=== PATIENT | female | born 1990 | race Caucasian/White ===

== ENCOUNTER 2019-09-26 14:25 | Outpatient (RCR) | payer OTHER, SELFPAY ==
[2019-08-14 11:20] VITALS: BP 126/69; PULSE 93
--- NOTE | 2019-08-14 11:35 | PM.OBTRLD ---
OB - Triage/Final Diagnosis Visit Information Date of evaluation: 08/14/19 Reason for evaluation: threatened labor Evaluation Vital signs: Vital Signs - 24 hr 08/14/19 11:20 Pulse Rate 93 Blood Pressure [Left Arm] 126/69
[2019-08-21 10:55] VITALS: BP 128/75; PULSE 81
[2019-08-28 13:36] VITALS: BP 113/65; PULSE 84
[2019-08-29 22:42] VITALS: BP 143/78; PULSE 79
[2019-09-05 14:58] VITALS: BP 140/77; PULSE 98
[2019-09-12 13:50] VITALS: BP 116/68; PULSE 88
[2019-09-19 15:06] VITALS: BP 132/84; PULSE 83
[2019-09-26 14:56] VITALS: BP 120/87; PULSE 92
== END 2019-10-01 12:16 | disposition home or self-care (01) ==
LOC: ANHOBOP 14:25
PROVIDERS: Visit Provider Obstetrics & Gynecology
DX: O99.89 Other specified diseases and conditions complicating pregnancy, childbirth and the puerperium (principal); R03.0 Elevated blood-pressure reading, without diagnosis of hypertension; Z3A.32 32 weeks gestation of pregnancy
CPT/HCPCS: 59025

== ENCOUNTER 2019-09-27 05:55 | Inpatient (IN) | payer OTHER, SELFPAY ==
[2019-09-27] VITALS (73 sets, daily range): BP systolic 122–159; BP diastolic 62–93; PULSE 75–146; RESP 17–18; TEMP 36.4–37.1; O2SAT 98–100; BMI 43.1
[2019-09-27 06:38] LABS: Basophils Percent Auto 0.2 % (0.2-1.2); Eosinophils Absolute Auto 0.1 K/mm3 (0-0.3); Eosinophils Percent Auto 0.4 % (0-4.4); Hemoglobin 12.4 g/dL (12.0-15.0); Immature Granulocyte Absolute 0.19 K/mm3 (0.00-0.031); Immature Granulocyte Percent A 1.5 % (0-0.5); Lymphocytes Absolute Auto 1.93 K/mm3 (0.9-3.2); Lymphocytes Percent Auto 15.7 % (18.3-44.2); Mean Corpuscular HGB Conc 32.6 g/dl (32-36); Mean Corpuscular Hemoglobin 27.6 pg (26-34); Mean Corpuscular Volume 84.4 fl (80-100); Mean Platelet Volume 10.5 fl (7.4-10.4); Monocytes Absolute Auto 0.7 K/mm3 (0.1-0.6); Monocytes Percent Auto 5.3 % (2.6-8.5); Neutrophils Absolute Auto 9.4 K/mm3 (1.3-6.7); Neutrophils Percent Auto 76.9 % (45.5-73.1); Platelet Count Result 303 k/mm3 (150-375); Red Cell Distribution Width 15.2 % (11.5-14.5); White Blood Count 12.3 K/mm3 (4.5-10.0)
--- NOTE | 2019-09-27 06:47 | PM.IMHP ---
H&P: HPI History of Present Illness Chief complaint: IOL Narrative: Lizzeth Moreno is a 29 year old female 001 whose last menstrual period was 01/02/2019, whose EDC is 10/09/2019, presents at38+ weeks gestation for induction of labor. She has chronic hypertension and has been on nifedipine XL 60 which is increased up to 90. Her blood pressures continue to worsen. She has an early ultrasound confirming dates and thus is admitted at 38 weeks for induction of labor. Risks and benefits reviewed Review of Systems Review of Systems: All systems reviewed & are unremarkable except as noted in HPI and below PMFSH Family History Family History Father Kidney disease Heart disease Diabetes mellitus Social History Social History Substance use: never Gender identity (if verbalized by the patient): Female Spiritual care concerns: No Meds Home Medications and Allergies Home Medications Medication Instructions Recorded Confirmed Type PNV cmb#95-ferrous fumarate-FA 1 tablet PO DAILY 08/28/19 08/28/19 History [] calcium carbonate [Tums] 200 mg PO QID PRN 08/28/19 08/28/19 History nifedipine 90 mg PO DAILY 08/28/19 08/28/19 History Allergies Allergy/AdvReac Type Severity Reaction Status Date / Time No Known Allergies Allergy Verified 08/28/19 13:30 Vital Signs Vital Signs - 24 hr 09/27/19 06:11 09/27/19 06:15 09/27/19 06:30 Pulse Rate 104 H 107 H 105 H Blood Pressure 145/86 H 134/83 142/81 H 09/27/19 06:45 Pulse Rate 107 H Blood Pressure 142/87 H Exam Const: General: no acute distress Eyes: General: appearance normal, both eyes and all related structures Neck: Neck: supple and no JVD Thyroid: thyroid normal Resp: Effort & Inspection: normal respiratory effort Auscultation: clear to auscultation bilaterally Cardio: Rate: regular rate Rhythm: regular rhythm GI: Inspection: normal to inspection (Uterus is gravid consistent with ) Auscultation: normal bowel sounds : General: Yes other (Cervix is 3, 60, -1 station. Artificial rupture of membranes clear. ) Bimanual exam- vagina & uterus: other ( heart tones are reassuring) Skin: General skin exam: no rashes or lesions noted Extrem: General: normal to inspection and no edema Psych: Mental Status: mental status grossly normal Affect: normal affect H&P: Results Labs Labs: Short CBC 09/27/19 Range/Units 06:28 WBC 12.3 H (4.5-10.0) K/mm3 Hgb 12.4 (12.0-15.0) g/dL Hct 38.0 (37.0-47.0) % Plt Count 303 (150-375) k/mm3 Assessment and Plan Additional Plan Impression: Term with worsening hypertension Plan: Medical induction of labor. Spontaneous vaginal delivery is expected. She has an epidural candidate. PIH labs were drawn.
[2019-09-27] MEDS: LACTATED RINGERS 1,000 ML 125 ML IV CONT ×2 (06:52→09:39)
--- NOTE | 2019-09-27 07:04 | LDADM ---
This patient, Lizzeth Moreno, was admitted to Labor/Delivery/Recovery 105 on 09/27/19 at 05:55. Plans for labor, pain management and were discussed with patient. Patient/family oriented to hospital policies and general routines including ID bracelet, bed and alarms, visiting hours, pain management, procedures, bathroom and other care routines, personal items, smoking policy, room service/diet and guest tray routines, security routines, and visiting hours. Patient/Family are encouraged to report perceived risks to care and to ask questions if they do not understand what they are told or what they should do. See OBIX for further documentation.
[2019-09-27 07:07] LABS: Uric Acid 4.5 mg/dL (2.5-7.5)
[2019-09-27 07:17] LABS: Alanine Aminotransferase 11 U/L (4-35); Albumin Level 3.7 g/dL (3.5-5.1); Alkaline Phosphatase 139 U/L (38-126); Aspartate Amino Transferase 19 U/L (14-36); Bilirubin,Total 0.3 mg/dL (0.2-1.3); Blood Urea Nitrogen 7 mg/dL (7-17); Calcium 8.9 mg/dL (8.4-10.2); Carbon Dioxide 18 mmol/L (22-30); Chloride 101 mmol/L (98-107); Estimated CRCL calculation 229 ml/min; Estimated Glomerular Filt Rate > 60; Glucose 128 mg/dL (65-105); Potassium 3.5 mmol/L (3.4-5.0); Sodium 135 mmol/L (137-145)
--- NOTE | 2019-09-27 10:28 | WPDANESEPPF ---
Anes - Initial Pre Proc Eval Date/Time: 09/27/19 10:28 Surgeon: Arcadio Duarte MD Pre Op Diagnosis: IOL Patient Data Age: 29 Gender: F Height: 5 ft 7 in Weight: 125 kg Last Vital Signs Temp 36.4 C 09/27/19 08:00 Pulse 92 09/27/19 10:27 BP 134/76 09/27/19 10:27 Pulse Ox 98 09/27/19 10:24 Allergies Allergy/AdvReac Type Severity Reaction Status Date / Time No Known Allergies Allergy Verified 08/28/19 13:30 Home Medications Medication Instructions Recorded Confirmed Type PNV cmb#95-ferrous fumarate-FA 1 tablet PO DAILY 08/28/19 09/27/19 History [] calcium carbonate [Tums] 200 mg PO QID PRN 08/28/19 09/27/19 History nifedipine 90 mg PO DAILY 08/28/19 09/27/19 History Laboratory Tests 09/27/19 09/27/19 09/27/19 06:28 06:28 06:28 WBC 12.3 K/mm3 H K/mm3 (4.5-10.0) RBC 4.50 M/mm3 M/mm3 (4.2-5.4) Hgb 12.4 g/dL g/dL (12.0-15.0) Hct 38.0 % % (37.0-47.0) MCV 84.4 fl fl (80-100) MCH 27.6 pg pg (26-34) MCHC 32.6 g/dl g/dl (32-36) RDW 15.2 % H % (11.5-14.5) Plt Count 303 k/mm3 k/mm3 (150-375) MPV 10.5 fl H fl (7.4-10.4) Immature Gran % (Auto) 1.5 % H % (0-0.5) Neut % (Auto) 76.9 % H % (45.5-73.1) Lymph % (Auto) 15.7 % L % (18.3-44.2) [place] % (Auto) 5.3 % % (2.6-8.5) Eos % (Auto) 0.4 % % (0-4.4) Baso % (Auto) 0.2 % % (0.2-1.2) Lymph # (Auto) 1.93 K/mm3 K/mm3 (0.9-3.2) [place] # (Auto) 0.7 K/mm3 H K/mm3 (0.1-0.6) Eos # (Auto) 0.1 K/mm3 K/mm3 (0-0.3) Baso # (Auto) 0.0 K/mm3 K/mm3 (0.0-0.1) Abs Immat Gran (auto) 0.19 K/mm3 H K/mm3 (0.00-0.031) Absolute Neuts (auto) 9.4 K/mm3 H K/mm3 (1.3-6.7) Absolute Nucleated RBC 0.0 K/mm3 K/mm3 (0.0-0.012) Nucleated RBC % 0.0 % % (0.0-0.2) Sodium Potassium Chloride Carbon Dioxide BUN Creatinine Estim Creat Clear Calc Estimated GFR Glucose Uric Acid 4.5 mg/dL mg/dL (2.5-7.5) Calcium Total Bilirubin AST ALT Alkaline Phosphatase Total Protein Albumin RPR Pending Blood Type Antibody Screen 09/27/19 09/27/19 06:28 06:28 WBC RBC Hgb Hct MCV MCH MCHC RDW Plt Count MPV Immature Gran % (Auto) Neut % (Auto) Lymph % (Auto) [place] % (Auto) Eos % (Auto) Baso % (Auto) Lymph # (Auto) [place] # (Auto) Eos # (Auto) Baso # (Auto) Abs Immat Gran (auto) Absolute Neuts (auto) Absolute Nucleated RBC Nucleated RBC % Sodium 135 mmol/L L mmol/L (137-145) Potassium 3.5 mmol/L mmol/L (3.4-5.0) Chloride 101 mmol/L mmol/L (98-107) Carbon Dioxide 18 mmol/L L mmol/L (22-30) BUN 7 mg/dL mg/dL (7-17) Creatinine 0.40 mg/dL L mg/dL (0.7-1.0) Estim Creat Clear Calc 229 ml/min ml/min Estimated GFR > 60 (59 - ) Glucose 128 mg/dL H mg/dL (65-105) Uric Acid Calcium 8.9 mg/dL mg/dL (8.4-10.2) Total Bilirubin 0.3 mg/dL mg/dL (0.2-1.3) AST 19 U/L U/L (14-36) ALT 11 U/L U/L (4-35) Alkaline Phosphatase 139 U/L H U/L (38-126) Total Protein 8.0 g/dL g/dL (6.3-8.2) Albumin 3.7 g/dL g/dL (3.5-5.1) RPR Blood Type A Positive Antibody Screen Negative Patient hx anesthesia problems: none Family hx anesthesia problems: none PMFSH Past Medical History Medical History (Revi
--- NOTE | 2019-09-27 11:48 | P.PNOB_ITS ---
OB - PN: Subj Subjective Date/time seen: 09/27/19 11:48 Interval history: complete/pushing fhts reassuring OB - PN: Obj Data Labs CBC & Chem 7: 09/27/19 06:28 09/27/19 06:28 Labs: Laboratory Results - last 24 hr 09/27/19 09/27/19 09/27/19 06:28 06:28 06:28 WBC 12.3 H RBC 4.50 Hgb 12.4 Hct 38.0 MCV 84.4 MCH 27.6 MCHC 32.6 RDW 15.2 H Plt Count 303 MPV 10.5 H Immature Gran % (Auto) 1.5 H Neut % (Auto) 76.9 H Lymph % (Auto) 15.7 L [place] % (Auto) 5.3 Eos % (Auto) 0.4 Baso % (Auto) 0.2 Lymph # (Auto) 1.93 [place] # (Auto) 0.7 H Eos # (Auto) 0.1 Baso # (Auto) 0.0 Abs Immat Gran (auto) 0.19 H Absolute Neuts (auto) 9.4 H Absolute Nucleated RBC 0.0 Nucleated RBC % 0.0 Sodium Potassium Chloride Carbon Dioxide BUN Creatinine Estim Creat Clear Calc Estimated GFR Glucose Uric Acid 4.5 Calcium Total Bilirubin AST ALT Alkaline Phosphatase Total Protein Albumin Blood Type A Positive Antibody Screen Negative 09/27/19 06:28 WBC RBC Hgb Hct MCV MCH MCHC RDW Plt Count MPV Immature Gran % (Auto) Neut % (Auto) Lymph % (Auto) [place] % (Auto) Eos % (Auto) Baso % (Auto) Lymph # (Auto) [place] # (Auto) Eos # (Auto) Baso # (Auto) Abs Immat Gran (auto) Absolute Neuts (auto) Absolute Nucleated RBC Nucleated RBC % Sodium 135 L Potassium 3.5 Chloride 101 Carbon Dioxide 18 L BUN 7 Creatinine 0.40 L Estim Creat Clear Calc 229 Estimated GFR > 60 Glucose 128 H Uric Acid Calcium 8.9 Total Bilirubin 0.3 AST 19 ALT 11 Alkaline Phosphatase 139 H Total Protein 8.0 Albumin 3.7 Blood Type Antibody Screen OB - PN A/P Time Spent With Patient Time: Total time spent is greater than 50% in coordination of care (as documented) at patient's floor/unit and/or counseling patient:
--- NOTE | 2019-09-27 12:18 | PM.OBPRVD ---
OB - Delivery Note Procedure Intrapartal events: None Induction method: AROM Delivery augmentation: pitocin Delivery monitor: external FHT Route of delivery: Laceration description: None Specimen: No Estimated blood loss (mL): 69 Anesthesia type: Epidural Disposition: floor Baby Date of : 09/27/19 Time of : 12:09 Weeks of gestation at delivery: 38 gender: Female Weight (pounds): 8 Weight (ounces): 1 presentation: vertex position: Right Occiput Anterior Placenta delivery description: Spontaneous cord vessel description: 3 Vessels score one minute: 9 score five minutes: 9
[2019-09-27] MEDS: WITCH HAZEL 40 PADS 1 PAD TOPICAL (14:18)
[2019-09-27] MEDS: BENZOCAINE 20% AER SPR (*SP) 56 GM CAN 1 SPRAY TOPICAL (14:18)
--- NOTE | 2019-09-27 14:56 | OBPPTRN ---
Patient transferred to post room #282 via wheelchair, after vaginal delivery of viable female infant at [address] Jihan Holder. Pt is a and is choosing to breast feed . . present. Oriented to unit, room, information board, rooming in, admission packet and security measures. Patient verbalizes understanding. Pt's VSS stable and assessment WNL.
[2019-09-27] MEDS: NIFEdipine 30 MG TAB.ER.24 60 MG PO (20:18)
[2019-09-27] MEDS: DOCUSATE SODIUM 100 MG CAPSULE PO (20:18)
[2019-09-27] MEDS: ACETAMINOPHEN 325 MG TABLET 650 MG PO (20:19)
[2019-09-28 05:36] LABS: Hematocrit 34.1 % (37.0-47.0); Hemoglobin 10.8 g/dL (12.0-15.0)
--- NOTE | 2019-09-28 07:02 | PM.OBPNVD ---
OB - PN: Subj Subjective Date/time seen: 09/28/19 07:02 Interval history: complete/pushing fhts reassuring Patient comments: no complaints and pain well controlled [facility] baby status: doing well and nursing well OB - PN: Obj Data Labs CBC & Chem 7: 09/28/19 04:55 09/27/19 06:28 Labs: Laboratory Results - last 24 hr 09/27/19 09/27/19 09/27/19 06:28 06:28 06:28 Hgb Hct Sodium 135 L Potassium 3.5 Chloride 101 Carbon Dioxide 18 L BUN 7 Creatinine 0.40 L Estim Creat Clear Calc 229 Estimated GFR > 60 Glucose 128 H Uric Acid 4.5 Calcium 8.9 Total Bilirubin 0.3 AST 19 ALT 11 Alkaline Phosphatase 139 H Total Protein 8.0 Albumin 3.7 Blood Type A Positive Antibody Screen Negative 09/28/19 04:55 Hgb 10.8 L Hct 34.1 L Sodium Potassium Chloride Carbon Dioxide BUN Creatinine Estim Creat Clear Calc Estimated GFR Glucose Uric Acid Calcium Total Bilirubin AST ALT Alkaline Phosphatase Total Protein Albumin Blood Type Antibody Screen OB - PN A/P Plan day: 1 Plan: routine care Time Spent With Patient Time: Total time spent is greater than 50% in coordination of care (as documented) at patient's floor/unit and/or counseling patient: Time with patient: less than 15 minutes Review of Systems Review of Systems: All systems reviewed & are unremarkable except as noted in HPI and below Exam Const: General: no acute distress Eyes: General: appearance normal, both eyes and all related structures Neck: Neck: supple and no JVD Thyroid: thyroid normal Resp: Effort & Inspection: normal respiratory effort Auscultation: clear to auscultation bilaterally Cardio: Rate: regular rate Rhythm: regular rhythm GI: Inspection: non-distended GI Palp: Yes Soft to palpation, No Tenderness to palpation present (GI) and No Guarding due to palpation present (GI) Auscultation: normal bowel sounds : General: Yes bladder normal to palpation External Female Exam: normal external appearance Speculum Exam - Vagina: normal vaginal discharge and No vaginal bleeding Speculum Exam - Cervix: nontender Bimanual exam- vagina & uterus: bladder normal to palpation and No Cervical tenderness present OB/external & speculum: No vaginal bleeding Skin: General skin exam: no rashes or lesions noted Extrem: General: normal to inspection and no edema Psych: Mental Status: mental status grossly normal Affect: normal affect
[2019-09-28 07:50] VITALS: BP 139/86; PULSE 97; RESP 18; TEMP 36.9; O2SAT 100
--- NOTE | 2019-09-28 10:10 | PC.NURSE ---
Consult with pt., mother reports she is breast and bottle feeding. Mother wishes to supplement after each feeding until her milk is in. Mother states this is how she breastfed first child. Mother verbalizes she is able to independently latch with appropriate positioning/alignment. She denies any nipple discomfort, is feeding as required and waking infant to feed if needed. has had several feedings followed with supplementation and is currently meeting outcomes for weight, output, jaundice and feeding frequencies. Mother states she feels confident to continue current feeding plan at home. Reviewed transition to breast milk, signs of adequate intake, and engorgement/relief. Instructed to call ICP if intake/output less than required. Reviewed regular medications mother is taking. Information provided per Jess. Reviewed community resources on the [facility] website and in the Mom/Baby guide. Information on outpatient services provided. Mother has no further questions at this time.
[2019-09-28] MEDS: MULTIVIT/MIN/PREN/FOL AC/IRON TABLET 1 TAB PO (10:15)
--- NOTE | 2019-09-28 10:44 | PC.NURSE ---
Patient was given the opportunity to view the discharge video Mother & Baby Care, The First Two Weeks and to ask questions. Patient declined viewing the video and has been given the mother/baby guide for home reference.
[2019-09-28 10:48] LABS: Rapid Plasma Reagin Non-Reactive (NonReactive)
[2019-09-29 09:32] VITALS: BP 130/74; PULSE 98; RESP 20; TEMP 36.6
--- NOTE | 2019-10-01 09:39 | PM.DS ---
DS: Diagnosis Admitting Diagnosis Admitting Diagnosis: term/htn DS: Summary Time Spent with Patient Time attestation: Total time spent providing and/or coordinating discharge services: Exam Const: General: no acute distress Eyes: General: appearance normal, both eyes and all related structures Neck: Neck: supple and no JVD Thyroid: thyroid normal Resp: Effort & Inspection: normal respiratory effort Auscultation: clear to auscultation bilaterally Cardio: Rate: regular rate Rhythm: regular rhythm GI: Inspection: non-distended GI Palp: Yes Soft to palpation, No Tenderness to palpation present (GI) and No Guarding due to palpation present (GI) Auscultation: normal bowel sounds : General: Yes bladder normal to palpation External Female Exam: normal external appearance Speculum Exam - Vagina: normal vaginal discharge and No vaginal bleeding Speculum Exam - Cervix: nontender Bimanual exam- vagina & uterus: bladder normal to palpation and No Cervical tenderness present OB/external & speculum: No vaginal bleeding Skin: General skin exam: no rashes or lesions noted Extrem: General: normal to inspection and no edema Psych: Mental Status: mental status grossly normal Affect: normal affect Discharge Plan Discharge Attending physician on discharge: Arcadio Duarte Discharging Clinician: Arcadio Duarte Patient Disposition: Home, Self-Care Activity: may shower, no straining, may drive after 2 weeks and pelvic rest Diet: regular Wound Care Instructions: follow printed instructions Discharge Instructions: Education: Mom and Baby Guide Given to: Mother Follow-Up: Call your delivering provider's office for an appointment to be seen in: 6 Weeks Mom and baby should come to the [facility] for the follow-up appointment. Appointment Date/Time: Sunday, September 29, 2019 at 9:00 am What to expect at your follow-up visit: Blood Pressure Check Physical Assessment Call [phone] if you are unable to keep your appointment time. BREAST CARE: 1. Wear a snug supportive bra. 2. For engorgement discomfort: Breast Feeding: A. Apply warm moist washcloths B. Express milk as needed to relieve engorgement C. Wear loose clothing Bottle Feeding: A. May apply ice packs 3. For sore nipples: A. Identify correct latch-on B. Apply warm moist washcloths before and after nursing C. Air dry nipples after nursing D. May apply Lansinoh cream to nipples EPISIOTOMY/PERINEAL CARE: 1. Until bleeding stops, use your jhonny bottle after urinating 2. Change your pad frequently throughout the day 3. You may take sitz baths several times a day (fill your bathtub with warm water and soak for 20 minutes.) Do NOT bathe in the water 4. No tub baths until seen by your physician - You may shower ACTIVITY: 1. Rest as much as possible. 2. Do not exercise or lift anything heavier than your baby (such as laundry or other children.) 3. Avoid stairs or driving as much as possible. 4. Do not put anything into the vagina. No douching, tampons, or sexual activity until seen by physician. NOTIFY PHYSICIAN IF YOU HAVE ANY QUESTIONS OR IF ANY OF THE FOLLOWING SYMPTOMS OCCUR: 1. If your perineum becomes red, swollen, or more painful than what you have experienced in the hospital. 2. If your vaginal bleeding becomes foul smelling. 3. If your vaginal bleeding becomes more heavy than a period or if your bleeding changes from pink to bright red. However, you may pass an occasional walnut-sized clot once or twice for the first week . 4. If you experience a sharp, shooting pain in you calves. 5. If you discover a hard, reddened area on your breast or if you experience flu-like symptoms. DIET: 1. Eat regular, well-balanced meals. 2. Drink plenty of fluids daily. If , drink to thirst. Stand Alone
== END 2019-09-28 13:44 | disposition home or self-care (01) | DRG 807 ==
LOC: ANHLDR 05:58 → ANHOB2 14:35
PROVIDERS: Admitting Provider Obstetrics & Gynecology; PCP Physician Assistant; Visit Provider Obstetrics & Gynecology
DX: O10.92 Unspecified pre-existing hypertension complicating childbirth (principal); Z37.0 Single live birth; Z3A.38 38 weeks gestation of pregnancy; O99.214 Obesity complicating childbirth; E66.01 Morbid (severe) obesity due to excess calories
CPT/HCPCS: 36415; 80053; 84550; 85014; 85018; 85025; 86592; 86850; 86900; 86901; A9270; J2590; J2795; J7120

== ENCOUNTER 2024-01-01 14:49 | Emergency (ER) | payer OTHER, SELFPAY ==
--- NOTE | ~2024-01-01 | XR_ITS ---
EXAMINATION: XR ankle LT 2V DATE: 01/01/2024 15:54 INDICATION: Left ankle fracture reduction TECHNIQUE: Anteroposterior and lateral views of the left ankle were obtained. COMPARISON: 01/01/2024 3:07 PM FINDINGS: There is been significant improvement of alignment post reduction of the previously described left an kle fracture. Note the posterior malleolar fracture of the distal left tibia appears to extend to inv olve at least a portion of the medial malleolus and is now minimally displaced. The angulation of the mildly comminuted fractures of the distal metaphyseal region of the fibula has been reduced. There i s residual 4 mm medial and 7 mm posterior displacement of the main distal fragment. The talus now dwight ropriately underlies the tibial plafond and. There is prominent soft tissue swelling about the ankle. Fiberglas splinting material is positioned posterior to the foot, ankle and visualized lower leg. IMPRESSION: 1. Significant improvement in alignment of the previous noted displaced and angulated distal left tib ia and fibular fractures. Reviewed, dictated and finalized at location A. IMPRESSION: 1. Significant improvement in alignment of the previous noted displaced and ang ulated distal left tibia and fibular fractures.
--- NOTE | ~2024-01-01 | XR_ITS ---
EXAMINATION: XR ankle LT 2V DATE: 01/01/2024 15:11 INDICATION: Left ankle trauma post fall while rollerskating TECHNIQUE: Anteroposterior and lateral views of the left ankle were obtained. COMPARISON: None. FINDINGS: Proximal to the lateral malleolus is a mildly comminuted oblique fracture of the distal metaphyseal r egion of the left tibia which exits the medial cortex at the level of the tibiotalar joint line. Ther e is a second oblique intra-articular fracture of the distal left tibia which appears to separate the posterior malleolus and posterior aspect of the tibial plafond from the majority of the articular manzano rface of the tibial plafond. No evident medial malleolar fracture which appears to remain contiguous with the main tibial fragment. No evident fracture in the visualized left foot. The talar dome remain s in normal alignment relative to the lateral and posterior malleolar fragments which are as a unit d isplaced posteriorly and angulated posteriorly and laterally relative to the more proximal tibia and fibula. The absence of a discernible medial malleolar fracture there is likely a tear of the deltoid ligament over the medial clear space is not adequately profiled on the provided projections to assess for widening which would be expected in the setting of ligament tear. IMPRESSION: 1. Fractures of the metaphyseal region of the distal left fibula and of the posterior malleolus of th e distal left tibia with with posterior displacement and posterior and lateral angulation along with the intervening talar dome relative to the more proximal tibia and fibula. Reviewed, dictated and finalized at location A. IMPRESSION: 1. Fractures of the metaphyseal region of the distal left fibula and of the pos terior malleolus of the distal left tibia with with posterior displacement and posterior and lateral angulation along with the intervening talar dome relative to the more proximal tibia and fibula.
[2024-01-01 14:58] VITALS: BP 139/77; PULSE 75; RESP 18; TEMP 36.9; O2SAT 100
--- NOTE | 2024-01-01 15:00 | ED.LOWEXIN ---
HPI - Extremity Injury (Lower) General Chief Complaint: Extremity Injury, Lower Stated Complaint: L ankle pain/deformity, fall while roller skating Time Seen by Provider: 01/01/24 14:53 Source: patient and EMS Mode of arrival: EMS Limitations: no limitations History of Present Illness HPI Narrative: ROLLER SKATE ACCIDENT AT [facility], COMPLAINING OF LEFT ANKLE INJURY, DENIES OTHER INJURIES. CAME TO THE ER BY AMBULANCE. Related Data Home Medications Medication Instructions Recorded Confirmed vit no.95-ferrous 1 tablet PO DAILY 08/28/19 09/27/19 fumarate 28 mg-folic acid 800 mcg tablet () Allergies Allergy/AdvReac Type Severity Reaction Status Date / Time No Known Allergies Allergy Verified 08/28/19 13:30 Review of Systems Review of Systems: All systems reviewed & are unremarkable except as noted in HPI and below PMFSH Past Medical History Medical History (Updated 01/01/24 @ 16:46 by Bobby Enriquez MD) Hypertension Morbid obesity Pituitary tumor Family History Family History Father Kidney disease Heart disease Diabetes mellitus Social History Social History Smoking status: Never smoker Second hand tobacco smoke exposure: No Substance use: never Gender identity (if verbalized by the patient): Female Spiritual care concerns: No Exam Narrative: GENERAL APPEARANCE: WELL-DEVELOPED, WELL-NOURISHED SKIN: NORMAL COLOR HEAD: NORMOCEPHALIC, NONTRAUMATIC EYES: CLEAR CONJUNCTIVA ENT: OROPHARYNX NORMAL, EARS NORMAL, NOSE NORMAL NECK: SUPPLE, NONTENDER CHEST AND RESPIRATORY: AIRWAY PATENT, NO RESPIRATORY DISTRESS, NO ACCESSORY MUSCLE USE HEART: REGULAR RATE/RHYTHM ABDOMEN: SOFT, NONTENDER, NO ORGANOMEGALY, QUIET BOWEL SOUNDS VASCULAR: NORMAL PERIPHERAL PULSES, NORMAL CAPILLARY REFILL. 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 Monk Outpatient follow-up Date: 01/01/24 Time: 16:46 Vital Signs Vital signs: Vital Signs Temperature 36.9 C 01/01/24 14:58 Pulse Rate 75 01/01/24 14:58 Respiratory Rate 18 01/01/24 14:58 Blood Pressure 139/77 01/01/24 14:58 Pulse Oximetry 100 01/01/24 14:58 Oxygen Delivery Room Air 01/01/24 14:58 Temperature 36.9 C 01/01/24 14:58 Pulse Rate 85 01/01/24 16:15 Respiratory Rate 16 01/01/24 16:15 Blood Pressure 142/84 H 01/01/24 16:15 Pulse Oximetry 100 01/01/24 16:15 Oxygen Delivery Room Air 01/01/24 16:15 Procedures Orthopedic Fracture Reduction Fracture #1: Fracture Reduction date: 01/01/24 Fracture Reduction time: 16:55 Time Out Performed: Yes (15) Side: left Fracture Reduction Location: other (ankle) Pre-Procedure Neuro Vascular Exam: normal Technique: direct manipulation and traction/counter-traction Post Reduction X-rays Demonstrate: acceptable reduction Post-reduction neuro exam: intact Post-reduction vascular exam: intact Splint Applied: Yes Patient Tolerated Procedure: well and no complications Procedural Sedation Procedural Sedation #1: Procedural Sedation Date: 01/01/24 Procedural Sedation Time: 17:20 Procedure: closed reduction left ankle dislocation and fracture Provider Performed: sedation and procedure Time Out: 20 minutes Informed Cons
[2024-01-01] MEDS: ONDANSETRON INJ 4 MG/2 ML VIAL IV PUSH (15:24)
[2024-01-01] MEDS: fentaNYL CITRATE INJ (*CRX) 100 MCG/2 ML VIAL 50 MCG IV PUSH (15:29)
[2024-01-01 15:35] VITALS: PULSE 67; RESP 13; O2SAT 100
[2024-01-01] MEDS: SODIUM CHLORIDE 0.9% IV 1,000 ML 999 ML IV CONT (15:35)
[2024-01-01] MEDS: ETOMIDATE 20 MG/10 ML AMPUL 60 MG IV PUSH (15:39)
[2024-01-01 15:40] VITALS: BP 127/93; PULSE 69; RESP 12; O2SAT 100
[2024-01-01 15:45] VITALS: BP 106/79; PULSE 81; RESP 15; O2SAT 99
[2024-01-01 16:00] VITALS: BP 141/83; PULSE 62; RESP 12; O2SAT 97
--- NOTE | 2024-01-01 16:04 | PC.NURSE ---
1535: Time out performed, all equipment in room, consent signed, MD at bedside. 1539: 12mg of Etomidate given IVP by Dr. Enriquez 1541: Reduction complete
[2024-01-01 16:15] VITALS: BP 142/84; PULSE 85; RESP 16; O2SAT 100
== END 2024-01-01 16:55 | disposition home or self-care (01) ==
PROVIDERS: Emergency Provider Emergency Medicine
DX: S89.392A Other physeal fracture of lower end of left fibula, initial encounter for closed fracture (principal); S82.52XA Displaced fracture of medial malleolus of left tibia, initial encounter for closed fracture; I10 Essential (primary) hypertension; E66.01 Morbid (severe) obesity due to excess calories; Z68.38 Body mass index [BMI] 38.0-38.9, adult; V00.121A Fall from non-in-line roller-skates, initial encounter; Y93.51 Activity, roller skating (inline) and skateboarding
CPT/HCPCS: 27768; 27786; 27788; 73600; 96374; 96375; 99285; J2405; J3010; J7030

== ENCOUNTER 2024-01-05 01:59 | Day surgery (SDC) | payer OTHER, SELFPAY ==
[2024-01-04 08:18] VITALS: BMI 36.1
--- NOTE | 2024-01-04 08:19 | PC.NURSE ---
Report to the Outpatient Waiting Room, entrance under the green pavilion located off [facility], at time _1100_ on date _[id number]_. Planned Procedure Time: _1pm_. Time changes happen often and if your time is changed the preop area will call you the afternoon before. - You and your visitor will be asked to self-screen and do not enter if you have any COVID symptoms. - A mask is optional within the hospital at this time. Patients may have clear liquids (water, carbonated beverages, clear teas, apple juice) until 3 hours prior to surgery with a maximum of 20 ounces. - No food from midnight until time of surgery Take the following medications with a SIP of water the morning of surgery: ___Hydrocodone if needed. DO NOT STOP ANY OF YOUR OTHER PRESCRIPTION MEDICATIONS PRIOR TO SURGERY ?EXCEPT THE FOLLOWING Medications to discontinue per physician ____Stop vitamins now. Date to take last dose Please no make-up, nail bulgarian, hairspray, perfume, deodorant, or body powder the day of surgery. No jewelry (including any body piercings) or valuables the day of surgery, leave them at home. Please take a shower or bath the night before, or the morning of, surgery with an antibacterial soap. Wear comfortable, loose fitting clothing. - Jewelry must be removed prior to entering the operating room. Rings and piercings that are not removed may be cut off. - The hospital will not accept responsibility for valuables. - Please leave all valuables, including medications, at home the day of surgery. If you are going home after surgery, a licensed local intermodal truck driver must drive you home. - NO public transportation without another adult if you receive anesthesia. - We recommend that an adult stay with you for 24 hours following discharge. - We also recommend that you do not drive, make important decision, drink alcoholic beverages, or take any drugs that were not prescribed by your health care provider for at least 24 hours after your discharge time. Follow any additional instructions given to you from your surgeon. If you or anyone in your household have experienced Covid symptoms in the past week, please notify your surgeon or the nurse liaison at the phone number below for possible testing. Telephone instructions given to __Lizzeth___and asked if any additional questions and then verbalized understanding. Patient advised to call surgeon office or pre surgery nurse liaison [phone] if any additional questions.
[2024-01-05] VITALS (10 sets, daily range): BP systolic 120–157; BP diastolic 70–92; PULSE 69–90; RESP 12–20; TEMP 36.1–36.6; O2SAT 97–100
--- NOTE | ~2024-01-05 | XR_ITS ---
EXAMINATION: XR surgery orthopedic DATE: 01/05/2024 14:38 INDICATION: ORIF left ankle fracture TECHNIQUE: 3 fluoroscopic images of the left ankle were obtained during procedure performed by Dr. Aquiles cedillo. Radiologist was not present for the imaging or procedure. The amount of fluoroscopy time used during this procedure was 0.5 minutes. COMPARISON: 01/03/2024 FINDINGS: The distal fibular fracture is fixed with interfragmentary screw and lateral plate and screws. The di stal tibial fracture involving the medial and posterior malleoli is also been reduced and fixed with a pair of anterior to posteriorly directed lag screws. There is also been a tightrope type distal tib iofibular syndesmotic fixation with metallic buttons at the medial and lateral margins of a lucent tu nnel extending across the metaphyseal region of the distal tibia and fibula. Alignment appears near-a natomic with a congruent ankle mortise. No other fractures identified. Joint spaces are unremarkable. IMPRESSION: 1. Near-anatomic alignment post open reduction internal fixation of distal tibial and fibular fractur es including a syndesmotic fixation. See procedure note for further detail. Reviewed, dictated and finalized at location A. IMPRESSION: 1. Near-anatomic alignment post open reduction internal fixation of distal tibi al and fibular fractures including a syndesmotic fixation. See procedure note f or further detail.
--- NOTE | 2024-01-05 10:54 | ECG_ITS ---
SEE SCANNED COPY FOR CONFIRMED REPORT MTDD
[2024-01-05] MEDS: ACETAMINOPHEN 500 MG TABLET 1000 MG PO (11:10)
--- NOTE | 2024-01-05 11:21 | WPDANESEPPF ---
Anes - Initial Pre Proc Eval Procedure: Operation Date: 01/05/24 13:00 Proposed Procedures p Open Reduction Internal Fixation Left Ankle - Paramjit Monk MD Date/Time: 01/05/24 11:21 Surgeon: Paramjit Monk MD Pre Op Diagnosis: Left Ankle Fx Patient Data Age: 33 Gender: F Height: 1.7 m Weight: 104.5 kg Allergies Allergy/AdvReac Type Severity Reaction Status Date / Time No Known Allergies Allergy Verified 01/05/24 10:59 Home Medications Medication Instructions Recorded Confirmed Type hydrocodone 5 mg-acetaminophen 325 1 tablet PO Q4H PRN pain #30 tabs 01/03/24 01/05/24 Rx mg tablet losartan 50 mg tablet 50 mg PO DAILY 01/03/24 01/05/24 History simvastatin 20 mg tablet 20 mg PO DAILY 01/03/24 01/05/24 History calcium carbonate 600 mg-vitamin 1 tablet PO DAILY 01/04/24 01/05/24 History D3 10 mcg (400 unit) tablet (Calcium 600 + D(3)) cyanocobalamin (vitamin B-12) 50 50 mcg PO DAILY 01/04/24 01/05/24 History mcg tablet (Vitamin B-12) multivitamin 1 tablet PO DAILY 01/04/24 01/05/24 History Patient hx anesthesia problems: none Family hx anesthesia problems: none Results Review: All pre-operative results and documents have been reviewed as part of the pre-operative evaluation. [facility] Past Medical History Medical History Fracture of ankle, trimalleolar, left, closed Hypertension Morbid obesity Pituitary tumor Surgical History Surgical History H/O gastric sleeve Family History Family History Father Kidney disease Heart disease Diabetes mellitus Unknown Hypertension Depression Diabetes mellitus Social History Social History Social History: caffeine use Smoking status: Never smoker Second hand tobacco smoke exposure: No Alcohol intake: never Substance use: current Substance use type: marijuana Other substance usage details: every now and then. Living arrangements: with family Occupation/Education: occupation Additional occupation/education comments: [employer] Gender identity (if verbalized by the patient): Female Spiritual care concerns: No Anes - Eval Final PreProcedure Day of Procedure 01/05/24 11:21 Patient weight: obese Heart: regular rate and rhythm Lungs: clear to auscultation Airway: Mallampati scale class II Neurological: alert and oriented Last oral intake: >/= 8 hours ASA classification: II Emergent: no Anesthetic plan: proceed Anesthesia type and monitoring: general LMA and standard monitoring Results Review: All pre-operative results and documents have been reviewed as part of the pre-operative evaluation. Informed Consent: The patient's anesthetic plan and its attendant risks and benefits were discussed with the patient/family/POA. Questions were solicited and answers provided to the satisfaction of the patient/family/POA.
--- NOTE | 2024-01-05 11:27 | WPDHPUPDATE1 ---
History and Physical Update Update Date/Time: 01/05/24 11:27 History and Physical has been reviewed, including an updated exam of the patient. There are NO changes in the patient's condition. Risks, benefits, and alternatives have been discussed and questions answered. Patient agrees to proceed with procedure.
[2024-01-05] MEDS: LACTATED RINGERS 1,000 ML 30 ML IV CONT ×2 (11:50→15:31)
[2024-01-05] MEDS: KETOROLAC 15 MG/ML VIAL (*BKC) IV PUSH (11:54)
--- NOTE | 2024-01-05 12:01 | P.OP_ITS ---
Procedure Note - Detailed Date of Procedure 01/05/24 Pre-op Diagnosis Left Ankle Fx With dislocation and syndesmosis disruption Post-op Diagnosis Same Procedure Performed ORIF LT ankle, weightbearing tibia and fibula, ORIF distal syndesmosis. Surgeon Paramjit Monk MD Raw Material Handler 1st assist Anesthesia General Indications 33 yo lt ankle fx shemar. Presents for operative tx Description of Procedure After informed consent, the operative extremity was marked in the preoperative holding area. Patient received intravenous antibiotics. Patient was then taken to the operating room and underwent general anesthesia by the anesthesia team. They were positioned supine on the operating room table. A time-out was performed confirming the patient, site of the surgery, operative plan. Lower extremity then prepped and draped in the usual sterile surgical fashion using ChloraPrep skin solution. Foot and ankle exsanguinated and a thigh tourniquet inflated to 250 mmHg. Longitudinal incision made over the lateral ankle distal fibula with a 15 blade knife. Hemostasis controlled with electrocautery. Full- thickness soft tissue flaps developed and the fascia was incised in line with the skin incision. Fracture identified and cleared with a dental pick, irrigation and rongeur. Fracture reduced and held with bone-holding clamp. Image intensification confirmed reduction of the fracture and the ankle mortise. Fixation achieved with a 3.5 millimeter fully-threaded cortical screw placed in lag technique across the fracture. Neutralization with a lateral plate with unicortical screws distal to fracture and bicortical screws proximal to the fracture. Good alignment and stability of the fracture noted. Image intensification used to confirm reduction of the fracture and placement of the hardware. anterior incision over the distal tibia with 15 blade knife. Hemostasis controlled electrocautery. Dissection carried down anterior tibia. The tibial fracture was reduced verified with image intensification provisionally pinned. Fixation achieved with 4.0 mm partially-threaded screws placed from anterior to posterior. 2 of these replaced with good fixation. Image intensification confirm reduction of the ankle mortise and fracture with placement hardware. The syndesmosis was then stressed and noted to be unstable to valgus and abduction. Syndesmosis was then reduced and verified with image intensification. Fixation achieved with a tight rope syndesmosis device placed from lateral to me. Drill hole placed under fluoroscopy, the construct was passed through the tibia and secured over the fibula. Stress of the ankle performed with good stability of the ankle mortise in all directions. Wound thoroughly irrigated with antibiotic solution. Fascia repaired with 00 Vicryl interrupted suture. Subcutaneous tissue repaired with 000 Monocryl interrupted suture and 0000 nylon running suture. Sterile dressings applied. Patient awoken from anesthesia, extubated and taken to the recovery room in stable condition. All sponge, needle and instrument counts correct at the end of the case. Palpable dorsalis pedis pulse noted prior to dressing. Implants Arthrex plate screws/ 4.0mm screws Estimated Blood Loss 5 Tourniquet Time Total Tourniquet Time: 80 Drains No Packing No Pathology None sent Complications None Condition Stable Disposition PACU [facility] Billing Surgery - Charge Forward: Surgery Billing ([id number])
[2024-01-05] MEDS: ceFAZolin 2 GM/D5W 50 ML 2 GM/50 ML BAG IVPB (12:55)
[2024-01-05] MEDS: BUPIVACAINE/EPINEPHRINE 0.5% 30 ML VIAL INFILTRATE (12:57)
[2024-01-05] MEDS: fentaNYL CITRATE INJ (*CRX) 100 MCG/2 ML VIAL 25 MCG IV PUSH ×4 (15:04→15:29)
[2024-01-05] MEDS: ONDANSETRON INJ 4 MG/2 ML VIAL IV PUSH (15:15)
[2024-01-05] MEDS: SCOPOLAMINE 1 MG PATCH 1 PATCH TRANSDERM (15:24)
[2024-01-05] MEDS: diphenhydrAMINE HCl INJ 50 MG/ML VIAL 25 MG IV PUSH (15:40)
== END 2024-01-05 16:35 | disposition home or self-care (01) ==
PROVIDERS: Visit Provider Orthopaedic Surgery
PROC: (CPT 27828; principal; 2024-01-05 13:00)
DX: S82.892A Other fracture of left lower leg, initial encounter for closed fracture (principal); I10 Essential (primary) hypertension; F12.90 Cannabis use, unspecified, uncomplicated; E66.9 Obesity, unspecified; Z68.35 Body mass index [BMI] 35.0-35.9, adult; Z79.891 Long term (current) use of opiate analgesic; Z98.84 Bariatric surgery status; Z86.018 Personal history of other benign neoplasm; Z82.49 Family history of ischemic heart disease and other diseases of the circulatory system; W19.XXXA Unspecified fall, initial encounter; Y93.51 Activity, roller skating (inline) and skateboarding
CPT/HCPCS: 27828; 93005; 99199; A9270; C1713; C1769; J0690; J1200; J1885; J2250; J2270; J2405; J2704; J3010; J7120